=== PATIENT | male | born 1975 | race Caucasian/White ===

== ENCOUNTER 2025-07-29 16:15 | Emergency (ER) | payer BC ==
[2025-07-29 16:45] LABS: #Basophils 0.06 10x3/uL (0.0-0.2); #Eosinophils 0.10 10x3/uL (0.0-0.5); #Monocytes 0.97 10x3/uL (0.0-1.1); #Neutrophils 10.34 10x3/uL (1.5-8.4); %Basophils 0.5 % (0.0-2.0); %Eosinophils 0.8 % (0.0-6.0); %Lymphocytes 10.1 % (18.0-47.0); %Monocytes 7.6 % (0.0-10.0); %Neutrophils 80.7 % (40.0-75.0); Hematocrit 44.0 % (38.8-50.0); Hemoglobin 14.4 g/dL (13.5-17.5); Mean Corpuscular Hemoglobin 29.1 pg (27.0-33.0); Mean Corpuscular Volume 88.9 fL (81.2-95.1); Platelet Count 245 10x3/uL (150-450); Red Blood Cell (RBC) Count 4.95 10x6/uL (4.32-5.72); White Blood Cell (WBC) Count 12.81 10x3/uL (3.5-10.5)
[2025-07-29 17:04] LABS: ALT (SGPT) 29 U/L (Less than 45); AST (SGOT) 29 U/L (11-34); Albumin 4.6 g/dL (3.1-4.5); Alkaline Phosphatase 79 U/L (40-110); Anion Gap 13 mmol/L (10-20); BUN (Urea Nitrogen) 18 mg/dL (8.4-25.7); Bilirubin, Total 0.4 mg/dL (0.3-1.2); Calc. Creatinine Clearance 0 mL/min (70-130); Calcium 9.4 mg/dL (7.8-10.44); Carbon Dioxide 24 mmol/L (22-29); Chloride 109 mmol/L (98-107); Globulin 2.5 g/dL (2.4-3.5); Glucose 95 mg/dL (70-105); Potassium 4.0 mmol/L (3.5-5.1); Sodium 142 mmol/L (136-145)
[2025-07-29 17:08] LABS: Troponin I Less than 0.010 ng/mL (< 0.028)
[2025-07-29 17:13] LABS: INR-International Normal Ratio 1.0; PTT 23.0 sec (22.0-33.0); Prothrombin Time 10.9 sec (9.5-12.1)
== END 2025-07-29 18:09 | disposition home or self-care (01) ==
LOC: CSHERS 16:15
DX: S06.0X0A Concussion without loss of consciousness, initial encounter (principal); S00.83XA Contusion of other part of head, initial encounter; W01.10XA Fall on same level from slipping, tripping and stumbling with subsequent striking against unspecified object, initial encounter
CPT/HCPCS: 70450; 70486; 70498; 71045; 80053; 84484; 85025; 85610; 85730; 93005